=== PATIENT | male | born 1945 | race Caucasian/White ===

== ENCOUNTER 2018-03-26 13:25 | Inpatient (IN) | payer OTHER ==
[~2018-03-26] VITALS: Ht 175.3 cm; Wt 107.0 kg
[2018-03-26 14:02] LABS: BASOPHILS ABSOLUTE AUTO 0.15 K/mm3 (0.00-0.23); BASOPHILS PERCENT AUTO 1 % (0-2); EOSINOPHILS PERCENT AUTO 1 % (0-6); Hematocrit 36.9 % (37.0-53.0); Hemoglobin 11.9 g/dL (13.5-17.5); IMMATURE GRAN ABSOLUTE AUTO 0.41 K/mm3 (0.00-0.10); IMMATURE GRAN PERCENT AUTO 3 % (0-1); LYMPHOCYTES ABSOLUTE AUTO 1.09 K/mm3 (0.84-5.20); LYMPHOCYTES PERCENT AUTO 8 % (21-46); MONOCYTES ABSOLUTE AUTO 1.17 K/mm3 (0.16-1.47); MONOCYTES PERCENT AUTO 8 % (4-13); Mean Corpuscular HGB 28.6 pg (26.0-34.0); Mean Corpuscular HGB Conc 32.2 g/dL (31.5-36.5); Mean Corpuscular Volume 89 fL (80-100); Mean Platelet Volume 10.6 fL (9.1-12.4); NEUTROPHILS ABSOLUTE AUTO 11.02 K/mm3 (1.96-9.15); NEUTROPHILS PERCENT AUTO 79 % (41-73); Platelet Count 352 K/mm3 (150-400); RDW Coefficient Variation 13.9 % (11.7-14.2); RDW Standard Deviation 45.1 fL (35.1-46.3); Red Blood Cell Count 4.16 M/mm3 (4.30-5.90); White Blood Cell Count 14.04 K/mm3 (4.00-11.30)
[2018-03-26] MEDS ORDERED: AMLO5 PO (14:03)
[2018-03-26] MEDS ORDERED: FINA5 PO (14:03)
[2018-03-26] MEDS ORDERED: FURO40 PO (14:03)
[2018-03-26] MEDS ORDERED: METO25ER PO (14:04)
[2018-03-26] MEDS ORDERED: TAMS.4ER PO (14:04)
[2018-03-26] MEDS ORDERED: LISI5 PO (14:04)
[2018-03-26 14:37] LABS: Albumin, Blood 3.3 g/dL (3.4-5.0); Albumin/Globulin Ratio 0.6 (0.8-1.8); Bilirubin, Total 0.3 mg/dL (0.1-1.0); Bun/Creatinine Ratio 25.9 (12.0-20.0); Calcium, Blood 9.1 mg/dL (8.5-10.1); Creatinine, Blood 5.48 mg/dL (0.60-1.20); Globulin, Blood 5.8 g/dL (2.2-4.0); Potassium, Blood 5.3 mmol/L (3.5-5.5); Total Protein, Blood 9.1 g/dL (6.4-8.2)
[2018-03-26 15:26] LABS: Source, Urine Catheter
[2018-03-26 15:37] LABS: Bilirubin, Urine Neg (Neg); Blood, Urine 5+ (Neg); Glucose Qualitative, Urine Neg (Neg); Ketones, Urine Neg (Neg); Leukocyte Esterase, Urine 3+ (Neg); Nitrite, Urine Neg (Neg); Protein, Urine 3+ (Neg); Urobilinogen, Urine NORM (Normal)
[2018-03-26 15:47] LABS: Appearance, Urine Cloudy (Clear); Color, Urine Yellow (P-Yellow)
[2018-03-26 15:48] LABS: Bacteria Many /hpf; Red Blood Cells, Urine TNTC /hpf (0-2); Squamous Epithelial Cells Not Seen /hpf (Few); White Blood Cells, Urine TNTC /hpf (0-5)
[2018-03-26] MEDS ORDERED: Acetaminophen-1 EAC1 PO (16:18)
[2018-03-26 16:21] LABS: Magnesium, Blood 2.3 mg/dL (1.6-2.4); Phosphorus, Blood 7.5 mg/dL (2.5-4.9)
[2018-03-26 18:50] LABS: Sodium, Urine, Random 29 mmol/L (20-110); Urea Nitrogen, Urine, Random 457 mg/dL (350-1000)
--- NOTE | 2018-03-27 03:06 | NUR ---
SHIFT SUMMARY PT WAS A NEW ADMIT JUST PRIOR TO START OF NOC SHIFT. PT ADMITTED FOR ACUTE ON CRF/CKD WITH CHRONIC BELTRÁN CATH IN PLACE. PER SHIFT REPORT, PT WAS SUPPOSE WAS TO HAVE A SUPRAPUBIC CATH PLACED YESTERDAY, HOWEVER WAS UNABLE TO D/T UTI. PT SENT TO ER FOR TX OF UTI. BELTRÁN CATH CHANGED PER ADMISSION PROTOCOL. NEW BELTRÁN CATH PLACED WITH MUCH DIFFICULTY. PT REPORTED PLACEMENT VERY PAINFUL AND STILL HAVING BLADDER SPASMS. DR PEREZ CONSULTED AND SEEN PT IN ER. PT C/O NAUSEA AT START OF SHIFT, MEDICATED PER EMAR. IVF'S INFUSING PER EMAR. PT NPO PER ORDERS. HX BPH AND CHF. PT DENIED BEING DIABETIC; HOWEVER, DAUGHTER CALLED AND REPORTED THAT HE WAS AND HAD BEEN ON METFORMIN UNTIL RECENTLY. METFORMIN IS NOT CURRENTLY LISTED ON PT'S MED REC. PT HAS BEEN PLEASANT AND CO-OP. HAS HAD SOME DIFFICULTY MOVING AROUND IN BED D/T BEING MORBIDLY OBESE. CONTINOUS BIOX ON PER BILL PROTOCOL. CALL LT IN REACH.
[2018-03-27 03:26] LABS: Hematocrit 31.1 % (37.0-53.0); Hemoglobin 9.9 g/dL (13.5-17.5); Mean Corpuscular HGB 28.7 pg (26.0-34.0); Mean Corpuscular HGB Conc 31.8 g/dL (31.5-36.5); Mean Corpuscular Volume 90 fL (80-100); Mean Platelet Volume 10.5 fL (9.1-12.4); Platelet Count 280 K/mm3 (150-400); RDW Standard Deviation 45.8 fL (35.1-46.3); Red Blood Cell Count 3.45 M/mm3 (4.30-5.90); White Blood Cell Count 9.39 K/mm3 (4.00-11.30)
[2018-03-27 03:40] LABS: International Normalized Ratio 1.03; Prothrombin Time Results 10.9 Sec (9.7-11.5)
[2018-03-27 03:45] LABS: Albumin, Blood 2.7 g/dL (3.4-5.0); Albumin/Globulin Ratio 0.6 (0.8-1.8); Bilirubin, Total 0.3 mg/dL (0.1-1.0); Bun/Creatinine Ratio 28.3 (12.0-20.0); Calcium, Blood 8.2 mg/dL (8.5-10.1); Creatinine, Blood 4.7 mg/dL (0.60-1.20); Globulin, Blood 4.9 g/dL (2.2-4.0); Potassium, Blood 5.3 mmol/L (3.5-5.5); Total Protein, Blood 7.6 g/dL (6.4-8.2)
[2018-03-27 07:52] LABS: Percent Saturation 27.3 % (20.0-50.0)
--- NOTE | 2018-03-27 18:23 | NUR ---
SHIFT SUMMARY PT HAS BEEN SLEEPING A LOT OF THE SHIFT. PT HAS NOT HAD MUCH OF AN APPTITE THIS SHIFT. PT C/O SEVERE SENSITIVITY/BURNING TO URETHRA AND OPENING OF PENIS FROM CATHETER PLACEMENT YESTERDAY. THIS RN TALKED WITH DR. ESTRADA AND LIDOCAINED ORDERED. THIS RN PLACED LIDOCAINE IN OPENING OF PENIS MUCH PT COULD TOLERATE AND PT REPORTS FEELING BETTER AFTER APPLICATION. PT HAD HYPOTENSION THIS AM AND DR. ESTRADA AWARE THIS RN HELD AM MEDICATIONS. MEDICATIONS WERE CHANGED. NO FURTHER CHANGES OR COMPLAINTS THIS SHIFT. WILL CONTINUE TO MONITOR AND REPORT TO ONCOMING RN. CALL LIGHT IN REACH.
--- NOTE | 2018-03-28 04:53 | NUR ---
PLASTICS PATTERNMAKER SUMMARY NO ACUTE CHANGES THIS SHIFT. PT AAOX4 AND COOPERATIVE WITH CARE. STANDBY ASSIST TO BATHROOM. PT HAD 1 SMALL BM AND ALSO SOME GAS. PT STILL REPORTS DISCOMFORT FROM BELTRÁN CATHETER SITE. DENIES PAIN WHEN LAYING IN BED AND DENIES NEED FOR PAIN MEDS. VSS, WILL CONTINUE TO MONITOR.
[2018-03-28 04:58] LABS: BASOPHILS ABSOLUTE AUTO 0.08 K/mm3 (0.00-0.23); BASOPHILS PERCENT AUTO 1 % (0-2); EOSINOPHILS ABSOLUTE AUTO 0.36 K/mm3 (0.00-0.68); EOSINOPHILS PERCENT AUTO 5 % (0-6); Hematocrit 30.1 % (37.0-53.0); Hemoglobin 9.3 g/dL (13.5-17.5); IMMATURE GRAN ABSOLUTE AUTO 0.27 K/mm3 (0.00-0.10); IMMATURE GRAN PERCENT AUTO 4 % (0-1); LYMPHOCYTES ABSOLUTE AUTO 1.06 K/mm3 (0.84-5.20); LYMPHOCYTES PERCENT AUTO 14 % (21-46); MONOCYTES ABSOLUTE AUTO 0.75 K/mm3 (0.16-1.47); MONOCYTES PERCENT AUTO 10 % (4-13); Mean Corpuscular HGB 28.1 pg (26.0-34.0); Mean Corpuscular HGB Conc 30.9 g/dL (31.5-36.5); Mean Corpuscular Volume 91 fL (80-100); Mean Platelet Volume 10.4 fL (9.1-12.4); NEUTROPHILS ABSOLUTE AUTO 5.26 K/mm3 (1.96-9.15); NEUTROPHILS PERCENT AUTO 68 % (41-73); Platelet Count 258 K/mm3 (150-400); RDW Coefficient Variation 14.4 % (11.7-14.2); RDW Standard Deviation 48.4 fL (35.1-46.3); Red Blood Cell Count 3.31 M/mm3 (4.30-5.90); White Blood Cell Count 7.78 K/mm3 (4.00-11.30)
[2018-03-28 06:11] LABS: Magnesium, Blood 2.2 mg/dL (1.6-2.4)
[2018-03-28 06:29] LABS: Alanine Aminotransfer (ALT/SGP 22 U/L (12-78); Albumin, Blood 2.4 g/dL (3.4-5.0); Albumin/Globulin Ratio 0.5 (0.8-1.8); Alk Phos 74 U/L (50-136); Anion Gap 9 mmol/L (6-16); Aspartate Aminotrans (AST/SGOT 14 U/L (12-37); Bilirubin, Total 0.3 mg/dL (0.1-1.0); Blood Urea Nitrogen 104 mg/dL (8-24); Bun/Creatinine Ratio 29.7 (12.0-20.0); CO2, Blood 17 mmol/L (21-32); Chloride, Blood 114 mmol/L (98-108); Globulin, Blood 4.6 g/dL (2.2-4.0); Glomerular Filtration Rate 18 (60-); Glucose, Blood 136 mg/dL (70-99); Potassium, Blood 4.7 mmol/L (3.5-5.5); Sodium, Blood 140 mmol/L (136-145)
--- NOTE | 2018-03-28 18:14 | NUR ---
SHIFT SUMMARY PT HAD AN EPISODE OF EMESIS AFTER BREAKFAST. THIS RN MEDICATED FOR N/V WITH ZOFRAN PER EMAR. PT HAD 100% OF LUNCH AND IS EATING DINNER AT THIS TIME. PT HAS HAD NO COMPLAINTS OF NAUSEA SINCE THIS AM. PT CONTINUES TO COMPLAIN OF PAIN IN PENIS/URETHRA OPENING FROM CATHETER. LIDOCAINE ORDERED AND APPLIED. PT REPORTS PAIN BETTER AFTER APPLICATION. NO ACUTE CHANGES THIS SHIFT. CALL LIGHT IN REACH. WILL CONTINUE TO MONITOR AND REPORT TO ONCOMING RN.
--- NOTE | 2018-03-29 04:41 | NUR ---
FLOOR FINISHER SUMMARY NO ACUTE CHANGES THIS SHIFT. PT AAOX4 AND INDEPENDENT TO BATHROOM. HAS HAD 1 BM THIS SHIFT. BELTRÁN CATH PATENT AND DRAINING. PT USING LIDOCAINE GEL ON TIP OF PENIS TO HELP WITH DISCOMFORT. PT DENIES PAIN OTHERWISE. VSS, WILL CONTINUE TO MONITOR.
[2018-03-29 05:31] LABS: BASOPHILS ABSOLUTE AUTO 0.08 K/mm3 (0.00-0.23); BASOPHILS PERCENT AUTO 1 % (0-2); EOSINOPHILS ABSOLUTE AUTO 0.36 K/mm3 (0.00-0.68); EOSINOPHILS PERCENT AUTO 4 % (0-6); Hemoglobin 9.3 g/dL (13.5-17.5); IMMATURE GRAN ABSOLUTE AUTO 0.39 K/mm3 (0.00-0.10); IMMATURE GRAN PERCENT AUTO 5 % (0-1); LYMPHOCYTES ABSOLUTE AUTO 1.17 K/mm3 (0.84-5.20); LYMPHOCYTES PERCENT AUTO 14 % (21-46); MONOCYTES ABSOLUTE AUTO 0.83 K/mm3 (0.16-1.47); MONOCYTES PERCENT AUTO 10 % (4-13); Mean Corpuscular HGB 29.2 pg (26.0-34.0); Mean Platelet Volume 10.4 fL (9.1-12.4); NEUTROPHILS ABSOLUTE AUTO 5.45 K/mm3 (1.96-9.15); NEUTROPHILS PERCENT AUTO 66 % (41-73); Platelet Count 281 K/mm3 (150-400); RDW Coefficient Variation 14.5 % (11.7-14.2); RDW Standard Deviation 50.2 fL (35.1-46.3); Red Blood Cell Count 3.19 M/mm3 (4.30-5.90); White Blood Cell Count 8.28 K/mm3 (4.00-11.30)
[2018-03-29 05:36] LABS: Mean Corpuscular Volume 94 fL (80-100)
[2018-03-29 06:24] LABS: Albumin, Blood 2.4 g/dL (3.4-5.0); Albumin/Globulin Ratio 0.5 (0.8-1.8); Bilirubin, Total 0.2 mg/dL (0.1-1.0); Bun/Creatinine Ratio 27.6 (12.0-20.0); Calcium, Blood 8.3 mg/dL (8.5-10.1); Creatinine, Blood 2.79 mg/dL (0.60-1.20); Globulin, Blood 4.7 g/dL (2.2-4.0); Potassium, Blood 4.8 mmol/L (3.5-5.5); Total Protein, Blood 7.1 g/dL (6.4-8.2)
--- NOTE | 2018-03-29 08:00 | NUR ---
PT PLEASANT COOP A/O. DENIES PAIN AT THIS TIME. SOME NAUSEA REPORTED. MED PER EMAR. H/R REG, TAD NOTED. NO TELE. LUNGS CLEAR, RESP EASY UNLABORED. ON R.A. BT X4 LAST BM YEST. VOIDS BELTRÁN CATH,. CLOUDY YELLOW FLUID DRAINING. 1 ASST TO BATHROOM. BED IN LOW POSITION, CALL LITE IN REACH, CALLS APPROP
[2018-03-29 18:06] LABS: A/G RATIO 0.8 (0.7-1.7); ALBUMIN 2.7 g/dL (2.9-4.4); ALPHA-1-GLOBULIN 0.2 g/dL (0.0-0.4); ALPHA-2-GLOBULIN 0.8 g/dL (0.4-1.0); GAMMA GLOBULIN 1.7 g/dL (0.4-1.8); GLOBULIN, TOTAL 3.8 g/dL (2.2-3.9); IMMUNOGLOBULIN A, QN, SERUM 649 mg/dL (61-437); IMMUNOGLOBULIN G, QN, SERUM 1490 mg/dL (700-1600); IMMUNOGLOBULIN M, QN, SERUM 66 mg/dL (20-172); M-SPIKE Not Observed g/dL (Not Observed); PROTEIN, TOTAL, SERUM 6.5 g/dL (6.0-8.5)
--- NOTE | 2018-03-29 18:45 | NUR ---
PT PLEASANT TODAY. HAD SOME EMESIS TODAY AND IS CONCERNED ABOUT MORE. MEDICATED WITH ZOFRAN. TRIED AMPHOGEL THIS NATE. AND PT TRYING TO SEE IF BETTER. PT STATES MAY BE BETTER. ADVISED HIM TO CALL AND REQUEST SHORTLY BEFORE MEALS AND SEE IF IMPROVEMENT NOTED. NO OTHER CONCERNS AT THIS TIME. BED I N LOW POSITION, CALL LITE IN REACH,C ALLS APPROP
[2018-03-30 06:01] LABS: Bun/Creatinine Ratio 23.2 (12.0-20.0); Calcium, Blood 8.6 mg/dL (8.5-10.1); Creatinine, Blood 2.28 mg/dL (0.60-1.20); Potassium, Blood 4.7 mmol/L (3.5-5.5)
--- NOTE | 2018-03-30 07:29 | NUR ---
SHIFT SUMMARY PT HAD A GOOD SHIFT UNTIL 0200 WHEN HE STARTED HAVING INCREASED PENIS PAIN AND RESTLESS LEGS. PT WAS TX PER EMAR WITH LITTLE RESULT. XYLOCAINE WAS APPLIED WITH SOME RELIEF. PT WAS AGAIN TX FOR PAIN PER EMAR WITH BETTER RESULT. PT IS NOW SLEEPING IN NO DISTRESS. CALL LIGHT IN REACH AND PT BREATHING EASY.
--- NOTE | 2018-03-30 18:09 | NUR ---
NO ACUTE CHANGES NOTED THIS SHIFT. IVF DISCONTINUED TODAY, PT MEDICATED WITH IV FENTANYL FOR 9/10 PAIN TO TIP OF PENIS. REPORTS EFFECTIVE. PT ANTICIPATING SUPRAPUBIC CATH PLACEMENT IN [place] ON SUNDAY. WILL CONTINUE TO MONITOR AND REPORT TO ONCOMING RN,.
--- NOTE | 2018-03-30 18:34 | NUR ---
EMESIS PT DID NOT TOLERATE HIS DINNER, 500CC EMESIS OF CHEWED AND PARTIALLY DIGESTED FOOD.
--- NOTE | 2018-03-31 04:00 | NUR ---
SHIFT SUMMARY PT CONTINUED TO HAVE PENIS DISCOMFORT. PROVIDER WAS CALLED TO ASK FOR ADDITIONAL PAIN MED. PROVIDER ORDERED PO PAIN MED WHICH IMPROVED PT COMFORT. PTHAS A ABD AND PELVIC CT FOR AM AND IS SUPPOSED TO DRINK ORAL CONTRAST. PT REFUSED TO DRINK CONTRAST DUE TO CONCERN OF N/V. PT HAD VOMITED EARLIER IN THE DAY AND DOES NOT WANT TO VOMIT CONTRAST. PT WAS MEDICATED FOR NAUSEA PER EMAR AND STILL REFUSED TO DRINK EVENING CONTRAST. WILL MEDICATE FOR NAUSEA AND ENCOURAGE PT TO DRINK CONTRAST THIS AM. PT HAS BEEN ABLE TO SLEEP SOME THIS SHIFT. PT COMFORT HAS IMPROVED SINCE LAST NOC SHIFT. CURRENTLY PT IS SLEEPING AND BREATHING EASY. CALL LIGHT IN REACH.
[2018-03-31 05:39] LABS: Bun/Creatinine Ratio 19.2 (12.0-20.0); Calcium, Blood 8.3 mg/dL (8.5-10.1); Creatinine, Blood 2.19 mg/dL (0.60-1.20); Potassium, Blood 4.9 mmol/L (3.5-5.5)
--- NOTE | 2018-03-31 18:13 | NUR ---
PT DOING BETTER TODAY, ABLE TO KEEP HIS MEALS DOWN OF THIS TIME. NO C/O PAIN, UP FOR A SHOWER. NO ACUTE CHANGES NOTED THIS SHIFT, WILL CONTINUE TO MONITOR AND REPORT TO ONCOMING RN.
--- NOTE | 2018-04-01 04:19 | NUR ---
SHIFT SUMMARY PT WAS IN GOOD SPIRITS THIS EVENING. PT HAD A SHOWER EARLIER AND WAS FEELING GOOD. PT DID HAVE SOME DISCOMFORT LATER IN SHIFT AND WAS TX PER EMAR. PT RESPONDED WELL AND WAS ABLE TO SLEEP. PT HAD NO ACUTE ISSUES AND IS SLEEPING. CALL LIGHT IN REACH.
--- NOTE | 2018-04-01 15:14 | NUR ---
HE HAS BEEN RESTING COMFORTABLY. HIS MAIN CONPLAINT IS PENILE PAIN FROM THE URINARY CATHETER. HE KNOWS HE NEEDS IT BUT SAYS HE NEVER WANTS ONE PLACED AGAIN. IT WAS THE WORST PAIN HE HAS EVER HAD HE SAYS. VSS. APPETITE FAIR. REFUSES A STATLOCK FOR THE CATHETER. HE WOULD RATHER CONTROL IT'S PLACEMENT HIMSELF. HE LIKES TO BE LEFT ALONE MUCH WE ARE ABLE.
--- NOTE | 2018-04-01 18:36 | NUR ---
NO CHANGES. JUST MEDICATED WITH OXYCODONE FOR PENILE PAIN. HE IS LOOKING FORWARD TO A SP CATH SO THIS PAIN WILL CEASE. HE ATE WELL AT DINNER.
--- NOTE | 2018-04-01 20:14 | NUR ---
194 PT LYING IN BED, DENIES ANY DISCOMFORT AT THIS TIME. NO APPARENT SIGNS OF DISTRESS. CALL LIGHT IS IN REACH.
--- NOTE | 2018-04-02 00:39 | NUR ---
04/01/18 2200 PT LYING IN BED, EYES CLOSED, APPEARS TO BE RESTING. BREATHING IS EVEN, UNLABORED. NO APPARENT SIGNS OF DISTRESS. CALL LIGHT IS IN REACH. 04/02/18 0039 PT LYING IN BED, EYES CLOSED, APPEARS TO BE RESTING. WAKES EASILY TO VERBAL STIMULI. NO APPARENT SIGNS OF DISTRESS. CALL LIGHT IS IN REACH.
--- NOTE | 2018-04-02 06:00 | NUR ---
0200 PT LYING IN BED, EYES CLOSED, APPEARS TO BE RESTING. BREATHING IS EVEN, UNLABORED. NO APPARENT SIGNS OF DISTRESS. CALL LIGHT IS IN REACH. 0400 PT LYING IN BED, EYES CLOSED, APPEARS TO BE RESTING. WAKES EASILY TO VERBAL STIMULI. NO APPARENT SIGNS OF DISTRESS. CALL LIGHT IS IN REACH.
--- NOTE | 2018-04-02 06:01 | NUR ---
PT LYING IN BED, EYES CLOSED, APPEARS TO BE RESTING. BREATHING IS EVEN, UNLABORED. NO APPARENT SIGNS OF DISTRESS. CALL LIGHT IS IN REACH. NO OTHER CHANGES THIS SHIFT.
--- NOTE | 2018-04-02 06:02 | NUR ---
PT IS AAO X 4, ON RA. DENIED ANY DISCOMFORT FOR THIS SHIFT.
--- NOTE | 2018-04-02 12:52 | NUR ---
HE IS HOPING TO GOP HOME TODAY AND ALERTED HIS DAUGHTER HE MAY GET DC ORDERS. HE IS FAMILIAR WITH THE UROLOGIST THAT COMES TO [place] [facility] REGULARLY. HAS DENIED NEED FOR A PAIN PILL SO FAR TODAY. HE USES HIS TOPICAL LIDOCAINE TO HIS PENIS A COUPLE OF TIMES A DAY.
[2018-04-02] MEDS ORDERED: METO25 PO (14:42)
[2018-04-02] MEDS ORDERED: ATOR80 PO (14:43)
--- NOTE | 2018-04-02 15:31 | NUR ---
HAS A LITTLE BACK PAIN. HE IS DRESSED AND WAITING FOR HIS DAUGHTER TO PICK HIM UP. HE HAS HIS INSTRUCTIONS AND THE [facility] [facility] HAS HIS INFORMATION TO MAIL HIM A PACKET. HE ALSO HAS THE [facility] INFO IF HE IS INTERESTED.
--- NOTE | 2018-04-02 15:51 | NUR ---
DISCHARGED TO HOME WITH BELONGINGS AND INSTRUCTIONS. BELTRÁN IN PLACE. WILL FOLLOW UP WITH HIS UROLOGIST.
== END 2018-04-02 16:00 | disposition home or self-care (01) | DRG 682 ==
LOC: ER 13:25 → MEDS 15:46
PROVIDERS: Emergency Medicine; Hospitalist; Internal Medicine; Nurse Practitioner Acute Care; Physician Assistant; ADMIT Family Medicine
DX: N17.9 Acute kidney failure, unspecified (principal); I50.41 Acute combined systolic (congestive) and diastolic (congestive) heart failure; T83.511A Infection and inflammatory reaction due to indwelling urethral catheter, initial encounter; I13.0 Hypertensive heart and chronic kidney disease with heart failure and stage 1 through stage 4 chronic kidney disease, or unspecified chronic kidney disease; I42.6 Alcoholic cardiomyopathy; E87.1 Hypo-osmolality and hyponatremia; E87.2 Acidosis; N13.6 Pyonephrosis; E11.22 Type 2 diabetes mellitus with diabetic chronic kidney disease; B96.1 Klebsiella pneumoniae [K. pneumoniae] as the cause of diseases classified elsewhere; B95.2 Enterococcus as the cause of diseases classified elsewhere; R11.2 Nausea with vomiting, unspecified; I16.0 Hypertensive urgency; G47.33 Obstructive sleep apnea (adult) (pediatric); F17.210 Nicotine dependence, cigarettes, uncomplicated; F10.10 Alcohol abuse, uncomplicated; N40.1 Benign prostatic hyperplasia with lower urinary tract symptoms; E78.5 Hyperlipidemia, unspecified; D63.1 Anemia in chronic kidney disease; N18.3 Chronic kidney disease, stage 3 (moderate); J45.20 Mild intermittent asthma, uncomplicated; E86.9 Volume depletion, unspecified
CPT/HCPCS: 36415; 51702; 51798; 71046; 74176; 76770; 80048; 80053; 81001; 82550; 82607; 82728; 82746; 82784; 83540; 83550; 83735; 83880; 84100; 84165; 84300; 84484; 84540; 85025; 85027; 85610; 86334; 87077; 87086; 87186; 93005; 93010; 94640; 94762; 96365-59; 96375-59; 99285-25; G0103; J0696; J1644; J2405; J3010; J7030

== ENCOUNTER 2018-05-07 09:26 | Day surgery (SDC) | payer OTHER ==
[~2018-05-07] VITALS: Ht 175.3 cm; Wt 123.6 kg
[~2018-05-07 09:26] MED LIST: AMLO5 PO; ATOR80 PO; Acetaminophen-1 EAC1 PO; FINA5 PO; FURO40 PO; LISI5 PO; METO25 PO; METO25ER PO; TAMS.4ER PO
--- NOTE | 2018-05-07 14:07 | NUR ---
PATIENT ELECTED NOT TO EAT LUNCH, PROVIDED. PATIENT REMINDED TO HOLD METFORMIN FOR 2 DAYS; TO RESTART ON 05/09/18. PERTINENT (SITE-SPECIFIC) DISCHARGE INSTRUCTIONS REVIEWED WITH PATIENTS USINT PRINTED FORMS WITH (SELF) HIGHLIGHTED AREAS EMPHASIZING MOBILILTY RESTRICTIONS AND PRECAUTIONS AGAINST INFECTION AND BLEEDING. ABLE TO SIT, STAND AND AMBULATE WITHOUT ASSISTANCE. SITES REVIEWED, SHOWING NO CHANGE IN CONDITION. IV CATHETER DC'D WITH CANNULA TIP INTACT. FOLDED 2X2 GAUZE PLACED WITH COBAN WRAP. WHEELCHAIR RIDE FOR HOSPITAL EXIT TO [facility], AWAITING RIDE.
== END 2018-05-07 15:00 | disposition home or self-care (01) ==
LOC: MHTC 09:26 → SURS 09:27 → MHTC 09:30
DX: N40.1 Benign prostatic hyperplasia with lower urinary tract symptoms (principal); E11.22 Type 2 diabetes mellitus with diabetic chronic kidney disease; I50.23 Acute on chronic systolic (congestive) heart failure; I13.0 Hypertensive heart and chronic kidney disease with heart failure and stage 1 through stage 4 chronic kidney disease, or unspecified chronic kidney disease; N18.3 Chronic kidney disease, stage 3 (moderate); E78.5 Hyperlipidemia, unspecified; Z87.891 Personal history of nicotine dependence; Z88.8 Allergy status to other drugs, medicaments and biological substances; Z79.899 Other long term (current) drug therapy
CPT/HCPCS: 99152; 99153; C1769; J2250; J3010; J7030; Q9967

== ENCOUNTER 2018-05-11 22:47 | Emergency (ER) | payer OTHER ==
[~2018-05-11] VITALS: Ht 175.3 cm; Wt 116.6 kg
[2018-05-12] MEDS ORDERED: ATOR40TA PO (01:07)
[2018-05-12] MEDS ORDERED: CEPH500 (01:07)
[2018-05-12] MEDS ORDERED: LIDO5TO TOP (01:07)
== END 2018-05-12 02:18 | disposition home or self-care (01) ==
LOC: ER 22:47
DX: T83.038A Leakage of other urinary catheter, initial encounter (principal); Z79.899 Other long term (current) drug therapy; I10 Essential (primary) hypertension; E11.9 Type 2 diabetes mellitus without complications; Z87.891 Personal history of nicotine dependence
CPT/HCPCS: 12020; 51798; 99283-25; A9270-GY

== ENCOUNTER 2018-05-20 13:51 | Emergency (ER) | payer OTHER ==
[~2018-05-20] VITALS: Ht 177.8 cm; Wt 119.3 kg
[~2018-05-20 13:51] MED LIST changes: +ATOR40TA PO; +CEPH500; +LIDO5TO TOP
[2018-05-20] MEDS ORDERED: Percocet 10-321 EACH PO (14:20)
== END 2018-05-20 15:03 | disposition home or self-care (01) ==
LOC: ER 13:51
DX: T83.031A Leakage of indwelling urethral catheter, initial encounter (principal); G89.18 Other acute postprocedural pain; Z79.899 Other long term (current) drug therapy; I10 Essential (primary) hypertension; E11.9 Type 2 diabetes mellitus without complications; Z87.891 Personal history of nicotine dependence
CPT/HCPCS: 99281

== ENCOUNTER → 2018-12-11 | Outpatient (CLI) | payer OTHER ==
[~2018-12-11] MED LIST changes: +Percocet 10-321 EACH PO
[2018-12-11 17:46] LABS: Bilirubin, Urine Neg (Neg); Blood, Urine 5+ (Neg); Glucose Qualitative, Urine 4+ (Neg); Ketones, Urine Neg (Neg); Leukocyte Esterase, Urine 3+ (Neg); Nitrite, Urine Neg (Neg); Protein, Urine 3+ (Neg); Specific Gravity, Urine 1.015 (1.003-1.022); Urobilinogen, Urine NORM (Normal)
[2018-12-11 17:56] LABS: Appearance, Urine Cloudy (Clear); Color, Urine Yellow (P-Yellow)
[2018-12-11 17:59] LABS: White Blood Cells, Urine TNTC /hpf (0-5)
[2018-12-11 18:00] LABS: Squamous Epithelial Cells Not Seen /hpf (Few)
[2018-12-11 18:01] LABS: Bacteria Mod /hpf; Yeast/Fungi Urine Mod /hpf
== END ==
LOC: LAB SHORT 16:29 → LAB 16:29
PROVIDERS: Nurse Practitioner Family
DX: N39.0 Urinary tract infection, site not specified (principal)
CPT/HCPCS: 81001; 87086

== ENCOUNTER → 2019-02-14 | Outpatient (CLI) | payer OTHER | LOC: LAB SHORT 11:04 → LAB 11:04 | DX: N39.0 Urinary tract infection, site not specified (principal) | CPT/HCPCS: 87086 ==

== ENCOUNTER → 2019-10-22 | Outpatient (CLI) | payer OTHER ==
[2019-10-22 18:01] LABS: Bilirubin, Urine Neg (Neg); Blood, Urine 5+ (Neg); Glucose Qualitative, Urine Neg (Neg); Ketones, Urine Neg (Neg); Leukocyte Esterase, Urine 3+ (Neg); Nitrite, Urine Neg (Neg); Protein, Urine 4+ (Neg); Specific Gravity, Urine 1.015 (1.003-1.022); Urobilinogen, Urine NORM (Normal)
[2019-10-22 18:20] LABS: Appearance, Urine Turbid (Clear); Color, Urine Yellow (P-Yellow)
[2019-10-22 18:27] LABS: White Blood Cells, Urine TNTC /hpf (0-5)
[2019-10-22 18:28] LABS: Bacteria Many /hpf; Red Blood Cells, Urine 50-100 /hpf (0-2); Squamous Epithelial Cells Rare /hpf (Few)
[2019-10-22 18:29] LABS: Amorphous Light (0-Heavy)
== END | disposition home or self-care (01) ==
LOC: LAB SHORT 16:31 → LAB 16:31
PROVIDERS: Internal Medicine
DX: R30.9 Painful micturition, unspecified (principal)
CPT/HCPCS: 81001; 87077; 87086; 87186

== ENCOUNTER → 2020-06-23 | Outpatient (CLI) | payer OTHER ==
[2020-06-23 13:05] LABS: Bun/Creatinine Ratio 19.7 (12.0-20.0); Calcium, Blood 9.1 mg/dL (8.5-10.1); Creatinine, Blood 1.88 mg/dL (0.60-1.20); Potassium, Blood 4.5 mmol/L (3.5-5.5)
== END | disposition home or self-care (01) ==
LOC: LAB 10:48 → LAB SHORT 10:48 → LAB FUT 04-19 11:00
PROVIDERS: Surgery Surgical Critical Care
DX: C43.0 Malignant melanoma of lip (principal)
CPT/HCPCS: 36415; 80048

== ENCOUNTER 2021-01-06 13:59 | Inpatient (IN) | payer OTHER ==
[~2021-01-06] VITALS: Ht 175.3 cm; Wt 116.0 kg
[2021-01-06 14:40] LABS: BASOPHILS ABSOLUTE AUTO 0.12 K/mm3 (0.00-0.23); BASOPHILS PERCENT AUTO 1 % (0-2); EOSINOPHILS ABSOLUTE AUTO 0.15 K/mm3 (0.00-0.68); EOSINOPHILS PERCENT AUTO 1 % (0-6); Hematocrit 42.4 % (37.0-53.0); Hemoglobin 13.8 g/dL (13.5-17.5); IMMATURE GRAN ABSOLUTE AUTO 0.13 K/mm3 (0.00-0.10); IMMATURE GRAN PERCENT AUTO 1 % (0-1); LYMPHOCYTES ABSOLUTE AUTO 1.16 K/mm3 (0.84-5.20); LYMPHOCYTES PERCENT AUTO 10 % (21-46); MONOCYTES PERCENT AUTO 11 % (4-13); Mean Corpuscular HGB 27.2 pg (26.0-34.0); Mean Corpuscular HGB Conc 32.5 g/dL (31.5-36.5); Mean Corpuscular Volume 84 fL (80-100); Mean Platelet Volume 10.5 fL (9.1-12.4); NEUTROPHILS ABSOLUTE AUTO 8.68 K/mm3 (1.96-9.15); NEUTROPHILS PERCENT AUTO 75 % (41-73); Platelet Count 366 K/mm3 (150-400); RDW Coefficient Variation 13.7 % (11.7-14.2); RDW Standard Deviation 41.5 fL (35.1-46.3); Red Blood Cell Count 5.07 M/mm3 (4.30-5.90); White Blood Cell Count 11.54 K/mm3 (4.00-11.30)
[2021-01-06 15:06] LABS: Albumin, Blood 3.3 g/dL (3.4-5.0); Albumin/Globulin Ratio 0.6 (0.8-1.8); Bilirubin, Total 0.5 mg/dL (0.1-1.0); Bun/Creatinine Ratio 14.5 (12.0-20.0); Calcium, Blood 10.1 mg/dL (8.5-10.1); Creatinine, Blood 2.55 mg/dL (0.60-1.20); Globulin, Blood 5.2 g/dL (2.2-4.0); Potassium, Blood 3.9 mmol/L (3.5-5.5); Total Protein, Blood 8.5 g/dL (6.4-8.2)
[2021-01-06] MEDS ORDERED: OXYC5 PO (15:07)
[2021-01-06] MEDS ORDERED: OXYB5 PO (15:07)
[2021-01-06] MEDS ORDERED: OXYCONTIN40 MG PO (15:07)
[2021-01-06] MEDS ORDERED: ERLEADA60 MG PO (15:08)
[2021-01-06] MEDS ORDERED: CARVEDILOL3.125 MG PO (15:08)
[2021-01-06] MEDS ORDERED: Prinivil10 MG PO (15:08)
[2021-01-06] MEDS ORDERED: FINA5 (15:08)
[2021-01-06] MEDS ORDERED: FUROSEMIDE40 MG (15:09)
[2021-01-06] MEDS ORDERED: PREGABALIN150 M5 PO (15:09)
[2021-01-06] MEDS ORDERED: GLIP5 PO (15:09)
[2021-01-06 15:30] LABS: Influenza A, PCR NEGATIVE (NEGATIVE); Influenza B, PCR NEGATIVE (NEGATIVE); Resp Syncytial Virus, PCR NEGATIVE (NEGATIVE); SARS-Cov-2 (COVID-19) PCR, MMC NEGATIVE (NEGATIVE)
[2021-01-06 17:20] LABS: Source, Urine Clean Catch
[2021-01-06 17:29] LABS: Appearance, Urine Hazy (Clear); Bilirubin, Urine Neg (Neg); Blood, Urine 5+ (Neg); Color, Urine Yellow (P-Yellow); Glucose Qualitative, Urine Neg (Neg); Ketones, Urine Neg (Neg); Leukocyte Esterase, Urine 3+ (Neg); Nitrite, Urine Neg (Neg); Protein, Urine 3+ (Neg); Specific Gravity, Urine 1.015 (1.003-1.022); Urobilinogen, Urine NORM (Normal)
[2021-01-06 17:49] LABS: Bacteria Many /hpf; Squamous Epithelial Cells Few /hpf (Few); White Blood Cells, Urine 50-100 /hpf (0-5)
[2021-01-06 21:13] LABS: Adenovirus F 40/41 Not Detected (NOT DETECT); Astrovirus Not Detected (NOT DETECT); Campylobacter Sp Not Detected (NOT DETECT); Cryptosporidium Not Detected (NOT DETECT); Cyclospora Cayetanensis Not Detected (NOT DETECT); E. Coli O157 Not Detected (NOT DETECT); Entamoeba Histolytica Not Detected (NOT DETECT); Enteroaggregative E. coli-EAEC Not Detected (NOT DETECT); Enteropathogenic E. coli-EPEC Not Detected (NOT DETECT); Enterotoxigenic E. coli-ETEC Not Detected (NOT DETECT); Giardia Lamblia Not Detected (NOT DETECT); Norovirus GI/GII Not Detected (NOT DETECT); Plesiomonas Shigelloides Not Detected (NOT DETECT); Rotavirus A Not Detected (NOT DETECT); Salmonella Sp Not Detected (NOT DETECT); Sapovirus Not Detected (NOT DETECT); Shiga Toxin-prod E. coli-STEC Not Detected (NOT DETECT); Shigella/Enteroin E. coli-EIEC Not Detected (NOT DETECT); Vibrio Cholerae Not Detected (NOT DETECT); Vibrio Sp Not Detected (NOT DETECT); Yersinia Enterocolitica Not Detected (NOT DETECT)
--- NOTE | 2021-01-06 22:35 | NUR ---
TRANSFER NOTE REPORT FROM JEANINE NEAL RN. PT TO ROOM BY SAMIR AND AMBULATED TO BED. PT ORIENTED TO CALL LIGHT AND UNIT. BED IN LOWEST POSITION, CALL LIGHT IN REACH.
--- NOTE | 2021-01-07 04:22 | NUR ---
WAREHOUSE FORKLIFT OPERATOR SUMMARY ADMITTED FOR INTRACTABLE NVD. PT IS FULL CODE. PT FOUND TO BE POSITIVE FOR C DIFF. CONTINUED IV FLUID THERAPY. PT IS INDEPENDENT IN THE ROOM. PT CARES FOR OWN SUPRAPUBIC CATHETER - REPORTS SOME BURNING. PT STARTED ON ORAL ABX LAST NIGHT. HAD MULTIPLE DIARRHEA BMS IN BSC. NO PAIN. NO REPORTED EPISODES OF VOMITING. PT NPO AT THIS TIME. NO OTHER CONCERNS THIS SHIFT.
[2021-01-07 05:44] LABS: Bun/Creatinine Ratio 14.8 (12.0-20.0); Calcium, Blood 9.3 mg/dL (8.5-10.1); Creatinine, Blood 2.64 mg/dL (0.60-1.20)
--- NOTE | 2021-01-07 17:02 | NUR ---
SHIFT SUMMARY PT AAOX4, ABLE TO MAKE NEEDS KNOWN, PLEASANT AND COOPERATIVE TO CARE. PT REQUIRES SBA TO BSC. NO C/O PAIN THIS SHIFT. DENIES CP, SOB, OR N/V. PT CONTINUES TO HAVE EPISODES OF DIARRHEA. DR. PAREKH NOTIFIED OF PATIENT'S STATUS THIS SHIFT. PT's DIET ADVANCED TO CLEAR DIET ORDERED, PT TOLERATING DIET W/O ANY ISSUES. PT CONTINUES ON ABX TX ORDERED, NO ASE NOTED. BED AT LOWEST POSITION. CALL LIGHT WITHIN REACH.
[2021-01-08 05:02] LABS: BASOPHILS ABSOLUTE AUTO 0.09 K/mm3 (0.00-0.23); BASOPHILS PERCENT AUTO 1 % (0-2); EOSINOPHILS ABSOLUTE AUTO 0.31 K/mm3 (0.00-0.68); EOSINOPHILS PERCENT AUTO 4 % (0-6); Hemoglobin 12.2 g/dL (13.5-17.5); IMMATURE GRAN ABSOLUTE AUTO 0.12 K/mm3 (0.00-0.10); IMMATURE GRAN PERCENT AUTO 1 % (0-1); LYMPHOCYTES ABSOLUTE AUTO 0.83 K/mm3 (0.84-5.20); LYMPHOCYTES PERCENT AUTO 9 % (21-46); MONOCYTES ABSOLUTE AUTO 0.87 K/mm3 (0.16-1.47); MONOCYTES PERCENT AUTO 10 % (4-13); Mean Corpuscular HGB 27.2 pg (26.0-34.0); Mean Corpuscular HGB Conc 32.1 g/dL (31.5-36.5); Mean Corpuscular Volume 85 fL (80-100); Mean Platelet Volume 10.6 fL (9.1-12.4); NEUTROPHILS ABSOLUTE AUTO 6.75 K/mm3 (1.96-9.15); NEUTROPHILS PERCENT AUTO 75 % (41-73); Platelet Count 277 K/mm3 (150-400); RDW Coefficient Variation 13.7 % (11.7-14.2); RDW Standard Deviation 42.7 fL (35.1-46.3); Red Blood Cell Count 4.48 M/mm3 (4.30-5.90); White Blood Cell Count 8.97 K/mm3 (4.00-11.30)
--- NOTE | 2021-01-08 05:13 | NUR ---
RETAIL SALES ASSOCIATE SEASONAL SUMMARY ADMITTED FOR N/V/D. PT IS FULL CODE. CURRENTLY BEING TREATED FOR C DIFF. PT CONTINUES TO HAVE DIARRHEA, BUT NO EPISODES OF NAUSEA OR VOMITING. ORDER OBTAINED FOR IMODIUM AND PT MEDICATED X2. CONTINUED ORAL ROCEPHIN. NO OTHER CONCERNS THIS SHIFT.
[2021-01-08 05:57] LABS: Albumin, Blood 2.8 g/dL (3.4-5.0); Albumin/Globulin Ratio 0.7 (0.8-1.8); Bilirubin, Direct 0.2 mg/dL (0.0-0.3); Bilirubin, Indirect 0.2 mg/dL (0.1-0.7); Bilirubin, Total 0.4 mg/dL (0.1-1.0); Bun/Creatinine Ratio 14.1 (12.0-20.0); Calcium, Blood 8.9 mg/dL (8.5-10.1); Creatinine, Blood 2.41 mg/dL (0.60-1.20); Phosphorus, Blood 3.5 mg/dL (2.5-4.9); Potassium, Blood 3.7 mmol/L (3.5-5.5); Total Protein, Blood 6.8 g/dL (6.4-8.2)
--- NOTE | 2021-01-08 17:57 | NUR ---
PT IS A/OX4, PLEASANT AND COOPERATIVE, THE PT IS UP IND TO THE BSC. THE PT APPEARS TO BE BREATHING EASILY ON RA AT THIS TIME. THE PT SO FOR HAS TOLERATED AN ADVANCED ADA DIET DENIES ANY N/V AT THIS TIME. THE PT HAS A SUPRA PUBIC CVATHETER THAT HE CARE FOR HE WANT'S AND PLACES IT ON THE FLOOR ON A CLEAN TOWEL SAYS THAT IT DRAINS BETTER THAT WAY, CALL LIGHT IN REACH, WILL CONTINUE TO MONITOR AND ASSESS FOR CHANGES
--- NOTE | 2021-01-08 20:28 | NUR ---
AWAKE, WAS RETURNING FROM THE BATHROOM. VOICED ANNOYANCE WITH MULTIPLE TRIPS TO THE BATHROOM DUE TO DIARRHEA. WE DISCUSSED MEDICATOINS AND C-DIFF. CALL LIGHT IN REACH. ISOLATION PRECAUTIONS MAINTAINED
--- NOTE | 2021-01-09 02:57 | NUR ---
POSTAL MAIL CARRIER SUMMARY ALERT AND ORIENTED X4. AFFECT CHEERFUL WHEN SPOKEN TO. VOICED ANNOYANCE OF MULTIPLE TRIPS TO THE BATHROOM (C-DIFF). RECEIVING PO VANCO FOR C-DIFF. FLUIDS ENCOURAGED TO REPLACE THAT BEING LOST. ISOLATION PRECAUTIONS MAINTAINED. HAS BEEN RESTING QUIETLY INTERMITTENTLY SINCE HS. CALL LIGHT IN REACH
[2021-01-09 05:17] LABS: BASOPHILS PERCENT AUTO 1 % (0-2); EOSINOPHILS ABSOLUTE AUTO 0.33 K/mm3 (0.00-0.68); EOSINOPHILS PERCENT AUTO 4 % (0-6); Hematocrit 37.3 % (37.0-53.0); IMMATURE GRAN ABSOLUTE AUTO 0.13 K/mm3 (0.00-0.10); IMMATURE GRAN PERCENT AUTO 2 % (0-1); LYMPHOCYTES ABSOLUTE AUTO 1.05 K/mm3 (0.84-5.20); LYMPHOCYTES PERCENT AUTO 12 % (21-46); MONOCYTES ABSOLUTE AUTO 0.93 K/mm3 (0.16-1.47); MONOCYTES PERCENT AUTO 11 % (4-13); Mean Corpuscular HGB 27.2 pg (26.0-34.0); Mean Corpuscular HGB Conc 32.2 g/dL (31.5-36.5); Mean Corpuscular Volume 85 fL (80-100); Mean Platelet Volume 10.9 fL (9.1-12.4); NEUTROPHILS ABSOLUTE AUTO 6.06 K/mm3 (1.96-9.15); NEUTROPHILS PERCENT AUTO 71 % (41-73); Platelet Count 277 K/mm3 (150-400); RDW Coefficient Variation 13.7 % (11.7-14.2); RDW Standard Deviation 42.6 fL (35.1-46.3); Red Blood Cell Count 4.41 M/mm3 (4.30-5.90)
[2021-01-09 05:44] LABS: Albumin, Blood 2.6 g/dL (3.4-5.0); Albumin/Globulin Ratio 0.7 (0.8-1.8); Bilirubin, Total 0.3 mg/dL (0.1-1.0); Bun/Creatinine Ratio 15.8 (12.0-20.0); Calcium, Blood 8.7 mg/dL (8.5-10.1); Creatinine, Blood 2.22 mg/dL (0.60-1.20); Globulin, Blood 3.9 g/dL (2.2-4.0); Potassium, Blood 3.7 mmol/L (3.5-5.5); Total Protein, Blood 6.5 g/dL (6.4-8.2)
[2021-01-09 14:21] LABS: Carcinoembryonic Antigen 0.4 ng/mL (0.0-3.0)
[2021-01-09 14:28] LABS: Cancer Antigen 19-9 13.9 U/mL (2.0-37.0)
--- NOTE | 2021-01-09 16:58 | NUR ---
PT IS A/O X3, PLEASANT AND COOPERATIVE. THE PT IS UP IND IN HIS ROOM, THE PT APPEARS TO BE BREATHING EASILY ON RA. THE PT WAS MEDICATED FOR NAUSEA X1. PT HAS HAD NO REPORTED EMISIS AND WAS ABLE TO EAT LUNCH. DR. PETERSEN WAS CONSULTED AND HAS SEEN THE PT TODAY. THE PT REPORTED THAT HIS DIARRHEA HAS SLOWED DOWN AND THAT HIS STOOLS ARE MORE SOLID. CALL LIGHT IN REACH. WILL CONTINUE TO MONITOR AND ASSESS FOR CHANGES
--- NOTE | 2021-01-10 00:14 | NUR ---
PLACED PT ON NON-REBREATHER MASK AND TURNED OXYGEN UP FROM 5 TO 6. WENT FROM 85% BIOX TO 95% BIOX.
--- NOTE | 2021-01-10 04:07 | NUR ---
PHOTOVOLTAIC FABRICATION TECHNICIAN SUMMARY HAS BEEN RESTING QUIETLY SINCE HS AFTER RECEIVING "SLEEP" MED (SEE MAR). UP AD ASHLYN, CONTINUES TO HAVE BM'S, BUT STOOL REPORTED LESS LIQUID. CONTINUES TO RECEIVE PO VANCO SCHEDULED FOR C-DIFF. ISOLATION PRECAUTIONS MAINTINED. CALL LIGHT IN REACH.
[2021-01-10 04:54] LABS: BASOPHILS ABSOLUTE AUTO 0.08 K/mm3 (0.00-0.23); BASOPHILS PERCENT AUTO 1 % (0-2); EOSINOPHILS ABSOLUTE AUTO 0.38 K/mm3 (0.00-0.68); EOSINOPHILS PERCENT AUTO 4 % (0-6); Hematocrit 34.8 % (37.0-53.0); Hemoglobin 11.3 g/dL (13.5-17.5); IMMATURE GRAN ABSOLUTE AUTO 0.13 K/mm3 (0.00-0.10); IMMATURE GRAN PERCENT AUTO 2 % (0-1); LYMPHOCYTES ABSOLUTE AUTO 1.04 K/mm3 (0.84-5.20); LYMPHOCYTES PERCENT AUTO 12 % (21-46); MONOCYTES ABSOLUTE AUTO 0.94 K/mm3 (0.16-1.47); MONOCYTES PERCENT AUTO 11 % (4-13); Mean Corpuscular HGB 27.4 pg (26.0-34.0); Mean Corpuscular HGB Conc 32.5 g/dL (31.5-36.5); Mean Corpuscular Volume 84 fL (80-100); Mean Platelet Volume 10.9 fL (9.1-12.4); NEUTROPHILS ABSOLUTE AUTO 6.24 K/mm3 (1.96-9.15); NEUTROPHILS PERCENT AUTO 71 % (41-73); Platelet Count 260 K/mm3 (150-400); RDW Coefficient Variation 13.8 % (11.7-14.2); RDW Standard Deviation 42.5 fL (35.1-46.3); Red Blood Cell Count 4.13 M/mm3 (4.30-5.90); White Blood Cell Count 8.81 K/mm3 (4.00-11.30)
[2021-01-10 05:34] LABS: Albumin, Blood 2.3 g/dL (3.4-5.0); Albumin/Globulin Ratio 0.7 (0.8-1.8); Bilirubin, Total 0.2 mg/dL (0.1-1.0); Bun/Creatinine Ratio 14.4 (12.0-20.0); Calcium, Blood 8.6 mg/dL (8.5-10.1); Creatinine, Blood 2.16 mg/dL (0.60-1.20); Globulin, Blood 3.5 g/dL (2.2-4.0); Potassium, Blood 3.8 mmol/L (3.5-5.5); Total Protein, Blood 5.8 g/dL (6.4-8.2)
[2021-01-10 09:01] LABS: International Normalized Ratio 1.05
--- NOTE | 2021-01-10 18:51 | NUR ---
PATIENT IS ALERT AND ORIENTED AND COOPERATIVE WITH CARE. LIVER BIOPSY COMPLETED TODAY. SUPRAPUBIC CATHETER IS IN PLACE. INDPENDENT IN ROOM. PLAN IS TO DISCHARGE HOME TOMORROW. THE PATIENT'S DAUGHTER WILL GIVE THE PATIENT A RIDE HOME. WILL CONTINUE TO MONITOR
--- NOTE | 2021-01-11 04:47 | NUR ---
URGENT CARE NURSE PRACTITIONER SUMMARY HAS BEEN RESTING QUIETLY WITH FEW INTERRUPTOINS SINCE HS AFTER HAVING RECEIVED MED FOR SLEEP - SEE MAR FOR DETAILS. CONTACT PRECAUTIONS CONTINUE. UP AD ASHLYN WITHOUT NOTED ACUTE DISTRESS. CALL LIGHT IN REACH. PO VANCO ADMINISTERED ORDERED.
[2021-01-11 04:49] LABS: BASOPHILS ABSOLUTE AUTO 0.08 K/mm3 (0.00-0.23); BASOPHILS PERCENT AUTO 1 % (0-2); EOSINOPHILS ABSOLUTE AUTO 0.36 K/mm3 (0.00-0.68); EOSINOPHILS PERCENT AUTO 4 % (0-6); Hematocrit 34.8 % (37.0-53.0); Hemoglobin 11.1 g/dL (13.5-17.5); IMMATURE GRAN ABSOLUTE AUTO 0.19 K/mm3 (0.00-0.10); IMMATURE GRAN PERCENT AUTO 2 % (0-1); LYMPHOCYTES ABSOLUTE AUTO 1.06 K/mm3 (0.84-5.20); LYMPHOCYTES PERCENT AUTO 10 % (21-46); MONOCYTES ABSOLUTE AUTO 0.98 K/mm3 (0.16-1.47); MONOCYTES PERCENT AUTO 10 % (4-13); Mean Corpuscular HGB Conc 31.9 g/dL (31.5-36.5); Mean Corpuscular Volume 85 fL (80-100); Mean Platelet Volume 10.5 fL (9.1-12.4); NEUTROPHILS ABSOLUTE AUTO 7.59 K/mm3 (1.96-9.15); NEUTROPHILS PERCENT AUTO 74 % (41-73); Platelet Count 266 K/mm3 (150-400); RDW Coefficient Variation 13.8 % (11.7-14.2); RDW Standard Deviation 42.9 fL (35.1-46.3); Red Blood Cell Count 4.11 M/mm3 (4.30-5.90); White Blood Cell Count 10.26 K/mm3 (4.00-11.30)
[2021-01-11 05:44] LABS: Albumin, Blood 2.4 g/dL (3.4-5.0); Albumin/Globulin Ratio 0.7 (0.8-1.8); Bilirubin, Total 0.2 mg/dL (0.1-1.0); Bun/Creatinine Ratio 17.2 (12.0-20.0); Calcium, Blood 8.7 mg/dL (8.5-10.1); Creatinine, Blood 2.09 mg/dL (0.60-1.20); Globulin, Blood 3.5 g/dL (2.2-4.0); Magnesium, Blood 2.3 mg/dL (1.6-2.4); Potassium, Blood 4.3 mmol/L (3.5-5.5); Total Protein, Blood 5.9 g/dL (6.4-8.2)
[2021-01-11] MEDS ORDERED: LISI5 PO (10:57)
[2021-01-11] MEDS ORDERED: VISBIOME 112.51 EACH PO (11:07)
[2021-01-11] MEDS ORDERED: ONDA4ODT PO (11:07)
[2021-01-11] MEDS ORDERED: FIRVANQ25 MG/1 ML PO (12:58)
--- NOTE | 2021-01-11 15:42 | NUR ---
SHIFT SUMMARY PATIENT IS ALERT AND ORIENTATED X4. NO ACUTE EVENTS THIS SHIFT. VITAL SIGNS REVIEWED. PATIENT AGREED AND UNDERSTOOD THE DISCHARGE INSTRUCTIONS. PATIENT WAS DISCHARGED TO [facility] WITHOUT INCIDENT.
[2021-01-13 10:14] LABS: Performing Lab SYMBIODX; Test Name BRAF
== END 2021-01-11 17:01 | disposition home or self-care (01) | DRG 436 ==
LOC: ER 13:59 → MEDS 14:00
PROVIDERS: Family Medicine; Internal Medicine; Internal Medicine Hematology & Oncology; Physician Assistant; ADMIT Internal Medicine
PROC: 0FB13ZX Excision of Right Lobe Liver, Percutaneous Approach, Diagnostic (ICD-10-PCS; principal; 2021-01-10)
DX: C78.7 Secondary malignant neoplasm of liver and intrahepatic bile duct (principal); A04.72 Enterocolitis due to Clostridium difficile, not specified as recurrent; N17.9 Acute kidney failure, unspecified; Z68.41 Body mass index [BMI] 40.0-44.9, adult; C78.00 Secondary malignant neoplasm of unspecified lung; Z20.822 Contact with and (suspected) exposure to COVID-19; D72.829 Elevated white blood cell count, unspecified; R79.89 Other specified abnormal findings of blood chemistry; E11.22 Type 2 diabetes mellitus with diabetic chronic kidney disease; D63.1 Anemia in chronic kidney disease; I12.9 Hypertensive chronic kidney disease with stage 1 through stage 4 chronic kidney disease, or unspecified chronic kidney disease; N18.30 Chronic kidney disease, stage 3 unspecified; Z79.84 Long term (current) use of oral hypoglycemic drugs; Z28.21 Immunization not carried out because of patient refusal; Z79.899 Other long term (current) drug therapy; Z85.46 Personal history of malignant neoplasm of prostate; Z98.890 Other specified postprocedural states; Z85.820 Personal history of malignant melanoma of skin; Z88.8 Allergy status to other drugs, medicaments and biological substances
CPT/HCPCS: 0097U; 0241U; 36415; 47000; 71250; 74150; 74176; 76705; 76770; 77012; 80048; 80053; 81001; 82248; 82378; 82947; 83690; 83735; 84100; 84153; 85025; 85610; 85730; 86301; 87086; 87324; 88307; 88341; 88342; 96365; 96372; 96375; 97116; 97161; 99285-25; A9270; G0378; J0696; J1650; J2405; J7030

== ENCOUNTER 2021-02-02 16:48 | Emergency (ER) | payer OTHER ==
[~2021-02-02] VITALS: Ht 175.3 cm; Wt 115.7 kg
[~2021-02-02 16:48] MED LIST changes: +CARVEDILOL3.125 MG PO; +ERLEADA60 MG PO; +FINA5; +FIRVANQ25 MG/1 ML PO; +FUROSEMIDE40 MG; +GLIP5 PO; +ONDA4ODT PO; +OXYB5 PO; +OXYC5 PO; +OXYCONTIN40 MG PO; +PREGABALIN150 M5 PO; +Prinivil10 MG PO; +VISBIOME 112.51 EACH PO
[2021-02-02 17:18] LABS: BASOPHILS ABSOLUTE AUTO 0.14 K/mm3 (0.00-0.23); BASOPHILS PERCENT AUTO 1 % (0-2); EOSINOPHILS ABSOLUTE AUTO 0.18 K/mm3 (0.00-0.68); EOSINOPHILS PERCENT AUTO 1 % (0-6); Hematocrit 40.2 % (37.0-53.0); Hemoglobin 12.5 g/dL (13.5-17.5); IMMATURE GRAN ABSOLUTE AUTO 0.49 K/mm3 (0.00-0.10); IMMATURE GRAN PERCENT AUTO 4 % (0-1); LYMPHOCYTES ABSOLUTE AUTO 0.96 K/mm3 (0.84-5.20); LYMPHOCYTES PERCENT AUTO 8 % (21-46); MONOCYTES ABSOLUTE AUTO 1.12 K/mm3 (0.16-1.47); MONOCYTES PERCENT AUTO 9 % (4-13); Mean Corpuscular HGB Conc 31.1 g/dL (31.5-36.5); Mean Corpuscular Volume 84 fL (80-100); Mean Platelet Volume 10.1 fL (9.1-12.4); NEUTROPHILS ABSOLUTE AUTO 9.55 K/mm3 (1.96-9.15); NEUTROPHILS PERCENT AUTO 77 % (41-73); Platelet Count 441 K/mm3 (150-400); RDW Coefficient Variation 14.6 % (11.7-14.2); RDW Standard Deviation 44.5 fL (35.1-46.3); Red Blood Cell Count 4.81 M/mm3 (4.30-5.90); White Blood Cell Count 12.44 K/mm3 (4.00-11.30)
[2021-02-02 17:40] LABS: Alanine Aminotransfer (ALT/SGP 23 U/L (12-78); Albumin, Blood 2.4 g/dL (3.4-5.0); Albumin/Globulin Ratio 0.6 (0.8-1.8); Alk Phos 132 U/L (50-136); Anion Gap 10 mmol/L (6-16); Aspartate Aminotrans (AST/SGOT 32 U/L (12-37); Bilirubin, Total 0.6 mg/dL (0.1-1.0); Blood Urea Nitrogen 39 mg/dL (8-24); Bun/Creatinine Ratio 17.8 (12.0-20.0); CO2, Blood 21 mmol/L (21-32); Calcium, Blood 9.5 mg/dL (8.5-10.1); Chloride, Blood 107 mmol/L (98-108); Creatinine, Blood 2.19 mg/dL (0.60-1.20); Globulin, Blood 4.3 g/dL (2.2-4.0); Glomerular Filtration Rate 30 (60-); Glucose, Blood 135 mg/dL (70-99); Potassium, Blood 4.4 mmol/L (3.5-5.5); Sodium, Blood 138 mmol/L (136-145); Total Protein, Blood 6.7 g/dL (6.4-8.2); Troponin I <0.015 ng/mL (0.000-0.040)
[2021-02-02 18:50] LABS: Source, Urine Catheter
[2021-02-02 18:54] LABS: Appearance, Urine Turbid (Clear); Bilirubin, Urine Neg (Neg); Blood, Urine 5+ (Neg); Color, Urine Yellow (P-Yellow); Glucose Qualitative, Urine Neg (Neg); Ketones, Urine 1+ (Neg); Leukocyte Esterase, Urine 3+ (Neg); Nitrite, Urine Neg (Neg); Protein, Urine 3+ (Neg); Urobilinogen, Urine NORM (Normal)
[2021-02-02 19:10] LABS: Red Blood Cells, Urine TNTC /hpf (0-2); White Blood Cells, Urine TNTC /hpf (0-5)
[2021-02-02 19:12] LABS: Bacteria Many /hpf; Squamous Epithelial Cells Not Seen /hpf (Few); Uric Acid Crystals Rare /hpf
[2021-02-02] MEDS ORDERED: LEVFLO500 PO (20:42)
== END 2021-02-02 21:25 | disposition home or self-care (01) ==
LOC: ER 16:48
PROVIDERS: Physician Assistant
DX: N39.0 Urinary tract infection, site not specified (principal); Z88.8 Allergy status to other drugs, medicaments and biological substances; Z79.899 Other long term (current) drug therapy; I10 Essential (primary) hypertension; E11.9 Type 2 diabetes mellitus without complications
CPT/HCPCS: 51705; 80053; 81001; 83690; 83880; 84484; 85025; 87086; 93005; 93010; 96374-59; 99284-25; C2627; J0696

== ENCOUNTER 2021-02-11 17:41 | Inpatient (IN) | payer OTHER ==
[~2021-02-11] VITALS: Ht 175.3 cm; Wt 108.4 kg
[~2021-02-11 17:41] MED LIST changes: +LEVFLO500 PO
[2021-02-11 18:24] LABS: Hematocrit 38.5 % (37.0-53.0); Hemoglobin 12.3 g/dL (13.5-17.5); Mean Corpuscular HGB 25.6 pg (26.0-34.0); Mean Corpuscular HGB Conc 31.9 g/dL (31.5-36.5); Mean Corpuscular Volume 80 fL (80-100); Platelet Count 327 K/mm3 (150-400); RDW Coefficient Variation 15.9 % (11.7-14.2); RDW Standard Deviation 45.9 fL (35.1-46.3); White Blood Cell Count 16.59 K/mm3 (4.00-11.30)
[2021-02-11 18:26] LABS: PCO2 Arterial 25.7 mmHg (35-45); PO2 Arterial 159 mmHg (80-100); pH Blood Arterial 7.38 (7.35-7.45)
[2021-02-11 18:40] LABS: Creatine Kinase MB 6.9 ng/mL (0.0-3.6); Creatine Kinase MB Index 3.2 (0.0-4.0); Troponin I 0.02 ng/mL (0.000-0.040)
[2021-02-11 18:43] LABS: Albumin, Blood 2.4 g/dL (3.4-5.0); Albumin/Globulin Ratio 0.6 (0.8-1.8); BAND PERCENT MAN 6 % (0-8); BASOPHILS PERCENT MAN 0 % (0-2); Bilirubin, Total 0.5 mg/dL (0.1-1.0); Bun/Creatinine Ratio 17.8 (12.0-20.0); Calcium, Blood 8.6 mg/dL (8.5-10.1); Creatinine, Blood 7.13 mg/dL (0.60-1.20); EOSINOPHILS PERCENT MAN 0 % (0-6); LYMPHOCYTES ABSOLUTE MAN 0.49 K/mm3 (0.84-5.20); LYMPHOCYTES PERCENT MAN 3 % (21-46); METAMYELOCYTE ABSOLUTE MAN 0.33 K/mm3 (0.00-0.00); METAMYELOCYTE PERCENT MAN 2 % (0-0); MONOCYTES ABSOLUTE MAN 1.16 K/mm3 (0.16-1.47); MONOCYTES PERCENT MAN 7 % (4-13); NEUTROPHILS ABSOLUTE MAN 14.59 K/mm3 (1.96-9.15); Potassium, Blood 4.8 mmol/L (3.5-5.5); SEG NEUTROPHILS PERCENT MAN 82 % (41-73); TOTAL CELLS COUNTED 100; Thyroid Stimulating Hormone 3.16 uIU/mL (0.360-4.800); Total Protein, Blood 6.4 g/dL (6.4-8.2)
[2021-02-11 19:02] LABS: International Normalized Ratio 1.54; Prothrombin Time Results 15.7 Sec (9.7-11.5)
[2021-02-11 19:28] LABS: Influenza A, PCR NEGATIVE (NEGATIVE); Influenza B, PCR NEGATIVE (NEGATIVE); Resp Syncytial Virus, PCR NEGATIVE (NEGATIVE); SARS-Cov-2 (COVID-19) PCR, MMC NEGATIVE (NEGATIVE)
[2021-02-11 21:46] LABS: Source, Urine Catheter
[2021-02-11 21:51] LABS: Appearance, Urine Hazy (Clear); Bilirubin, Urine Neg (Neg); Blood, Urine 5+ (Neg); Color, Urine Yellow (P-Yellow); Glucose Qualitative, Urine Neg (Neg); Ketones, Urine Neg (Neg); Leukocyte Esterase, Urine 3+ (Neg); Nitrite, Urine Neg (Neg); Protein, Urine 2+ (Neg); Specific Gravity, Urine 1.015 (1.003-1.022); Urobilinogen, Urine NORM (Normal)
[2021-02-11 22:05] LABS: Red Blood Cells, Urine 0-2 /hpf (0-2); Squamous Epithelial Cells Rare /hpf (Few); White Blood Cells, Urine 25-50 /hpf (0-5)
[2021-02-11 22:06] LABS: Bacteria Few /hpf; Yeast/Fungi Urine Mod /hpf
--- NOTE | 2021-02-12 | NUR ---
ADMISSION REPORT RECIEVED FROM ER NURSE. PATIENT ARRIVED TO PCU 17 ON ER GURNEY, SLID OVER TO PCU BED BY STAFF. VSS. PATIENT ON ROOM AIR. PHOTOS TAKEN OF PATIENT'S PREEXISTING WOUNDS/SKIN. PHOTOS IN CHART. PATIENT ORIENTED TO ROOM AND CALL LIGHT SYSTEM. TELE IN PLACE. BED IN LOW POSITION.
[2021-02-12 03:36] LABS: BASOPHILS ABSOLUTE AUTO 0.08 K/mm3 (0.00-0.23); BASOPHILS PERCENT AUTO 1 % (0-2); EOSINOPHILS ABSOLUTE AUTO 0.01 K/mm3 (0.00-0.68); EOSINOPHILS PERCENT AUTO 0 % (0-6); Hematocrit 33.7 % (37.0-53.0); Hemoglobin 10.7 g/dL (13.5-17.5); IMMATURE GRAN PERCENT AUTO 5 % (0-1); LYMPHOCYTES ABSOLUTE AUTO 0.62 K/mm3 (0.84-5.20); LYMPHOCYTES PERCENT AUTO 4 % (21-46); MONOCYTES ABSOLUTE AUTO 1.27 K/mm3 (0.16-1.47); MONOCYTES PERCENT AUTO 9 % (4-13); Mean Corpuscular HGB 25.7 pg (26.0-34.0); Mean Corpuscular HGB Conc 31.8 g/dL (31.5-36.5); Mean Corpuscular Volume 81 fL (80-100); Mean Platelet Volume 10.2 fL (9.1-12.4); NEUTROPHILS ABSOLUTE AUTO 12.26 K/mm3 (1.96-9.15); NEUTROPHILS PERCENT AUTO 82 % (41-73); Platelet Count 286 K/mm3 (150-400); RDW Standard Deviation 46.9 fL (35.1-46.3); Red Blood Cell Count 4.16 M/mm3 (4.30-5.90); White Blood Cell Count 14.94 K/mm3 (4.00-11.30)
[2021-02-12 03:51] LABS: Albumin, Blood 1.8 g/dL (3.4-5.0); Anion Gap 14 mmol/L (6-16); Blood Urea Nitrogen 128 mg/dL (8-24); Bun/Creatinine Ratio 19.5 (12.0-20.0); CO2, Blood 19 mmol/L (21-32); Calcium, Blood 8.4 mg/dL (8.5-10.1); Chloride, Blood 107 mmol/L (98-108); Creatinine, Blood 6.58 mg/dL (0.60-1.20); Glomerular Filtration Rate 8 (60-); Glucose, Blood 174 mg/dL (70-99); Magnesium, Blood 2.4 mg/dL (1.6-2.4); Phosphorus, Blood 5.9 mg/dL (2.5-4.9); Potassium, Blood 4.3 mmol/L (3.5-5.5); Sodium, Blood 140 mmol/L (136-145)
[2021-02-12 04:38] LABS: Campylobacter Sp Not Detected (NOT DETECT)
[2021-02-12 04:39] LABS: Adenovirus F 40/41 Not Detected (NOT DETECT); Astrovirus Not Detected (NOT DETECT); Cryptosporidium Not Detected (NOT DETECT); Cyclospora Cayetanensis Not Detected (NOT DETECT); E. Coli O157 Not Detected (NOT DETECT); Entamoeba Histolytica Not Detected (NOT DETECT); Enteroaggregative E. coli-EAEC Not Detected (NOT DETECT); Enteropathogenic E. coli-EPEC Not Detected (NOT DETECT); Enterotoxigenic E. coli-ETEC Not Detected (NOT DETECT); Giardia Lamblia Not Detected (NOT DETECT); Norovirus GI/GII Not Detected (NOT DETECT); Plesiomonas Shigelloides Not Detected (NOT DETECT); Rotavirus A Not Detected (NOT DETECT); Salmonella Sp Not Detected (NOT DETECT); Sapovirus Not Detected (NOT DETECT); Shiga Toxin-prod E. coli-STEC Not Detected (NOT DETECT); Shigella/Enteroin E. coli-EIEC Not Detected (NOT DETECT); Vibrio Cholerae Not Detected (NOT DETECT); Vibrio Sp Not Detected (NOT DETECT); Yersinia Enterocolitica Not Detected (NOT DETECT)
--- NOTE | 2021-02-12 05:38 | NUR ---
SHIFT SUMMARY PATIENT ALERT AND ORIENTED X3. VSS AND PATIENT REMAINS ON RA WITH O2 SATURATION ABOVE 92%. PATIENT ABLE TO MAKE NEEDS KNOWN AND USES CALL LIGHT APPROPRIATELY. ABLE TO HAVE BM OVERNIGHT, SAMPLE SENT TO LAB. NO OTHER SIGNIFICANT CHANGES SINCE ADMISSION NOTE. WILL REPORT TO DAY SHIFT RN.
--- NOTE | 2021-02-12 17:18 | NUR ---
PT WITH FLAT AFFECT, HE IS CONUSED, HE INTERMITTENTLY IS AWARE WHERE HE IS AND IS ORIENTED TO SELF. PT WITH CHRONIC BACK PAIN, HE WILL BECOME TEARFUL BECAUSE OF PAIN BUT REPORTS PAIN A "2". PT WAS TREATED WITH SCHEDULED ROXICODONE AND PRN FOR BREAKTHROUGH PAIN. PT HAS BEEN TO CT AND HAS HAD ECHO PERFORMED. AWAITING RESULTS OF ECHO NOW. VSS. DENIES CP OR SOB.
[2021-02-13 03:48] LABS: Hematocrit 31.6 % (37.0-53.0); Hemoglobin 10.1 g/dL (13.5-17.5)
[2021-02-13 04:08] LABS: Albumin, Blood 1.6 g/dL (3.4-5.0); Anion Gap 12 mmol/L (6-16); Blood Urea Nitrogen 109 mg/dL (8-24); CO2, Blood 20 mmol/L (21-32); Calcium, Blood 8.1 mg/dL (8.5-10.1); Chloride, Blood 110 mmol/L (98-108); Creatinine, Blood 5.18 mg/dL (0.60-1.20); Glomerular Filtration Rate 11 (60-); Glucose, Blood 145 mg/dL (70-99); Magnesium, Blood 2.3 mg/dL (1.6-2.4); Potassium, Blood 3.4 mmol/L (3.5-5.5); Sodium, Blood 142 mmol/L (136-145)
--- NOTE | 2021-02-13 05:13 | NUR ---
SHIFT SUMMARY PATIENT ALERT AND ORIENTED BUT CONFUSED AT TIMES. ANSWERS ALL QUESTIONS APPROPRIATELY. VSS. PATIENT REMAINS ON RA WITH O2 SATURATION ABOVE 92%. PATIENT SLEPT FOR MOST OF SHIFT BUT WAKES EASILY TO VERBAL STIMULLI. NO OTHER SIGNIFICANT CHANGES NOTES, WILL REPORT TO DAY SHIFT.
--- NOTE | 2021-02-13 17:13 | NUR ---
SHIFT SUMMARY PT HAS BEEN RESTING QUIETLY IN ROOM. PT SPENT SOME TIME IN THE BEDSIDE CHAIR AND CALLED FOR ASSISTANCE TO AND FROM CHAIR. PT TRANSFERRED BY STANDBY ASSIST WITH GAIT BELT AND WALKER. PT C/O LOWER BACK PAIN THAT WAS RELIEVED WITH HEAT AND REPOSITIONING. VSS, NO CHANGES TO CURRENT CONDITION.
[2021-02-14 05:11] LABS: BASOPHILS ABSOLUTE AUTO 0.07 K/mm3 (0.00-0.23); BASOPHILS PERCENT AUTO 1 % (0-2); EOSINOPHILS ABSOLUTE AUTO 0.08 K/mm3 (0.00-0.68); EOSINOPHILS PERCENT AUTO 1 % (0-6); Hematocrit 32.2 % (37.0-53.0); Hemoglobin 10.1 g/dL (13.5-17.5); IMMATURE GRAN ABSOLUTE AUTO 0.49 K/mm3 (0.00-0.10); IMMATURE GRAN PERCENT AUTO 5 % (0-1); LYMPHOCYTES PERCENT AUTO 6 % (21-46); MONOCYTES ABSOLUTE AUTO 0.91 K/mm3 (0.16-1.47); MONOCYTES PERCENT AUTO 10 % (4-13); Mean Corpuscular HGB 25.5 pg (26.0-34.0); Mean Corpuscular HGB Conc 31.4 g/dL (31.5-36.5); Mean Corpuscular Volume 81 fL (80-100); Mean Platelet Volume 10.7 fL (9.1-12.4); NEUTROPHILS ABSOLUTE AUTO 7.16 K/mm3 (1.96-9.15); NEUTROPHILS PERCENT AUTO 77 % (41-73); Platelet Count 211 K/mm3 (150-400); RDW Coefficient Variation 16.4 % (11.7-14.2); RDW Standard Deviation 48.1 fL (35.1-46.3); Red Blood Cell Count 3.96 M/mm3 (4.30-5.90); White Blood Cell Count 9.31 K/mm3 (4.00-11.30)
[2021-02-14 05:31] LABS: Albumin, Blood 1.6 g/dL (3.4-5.0); Anion Gap 9 mmol/L (6-16); Blood Urea Nitrogen 103 mg/dL (8-24); Bun/Creatinine Ratio 22.6 (12.0-20.0); CO2, Blood 20 mmol/L (21-32); Calcium, Blood 8.2 mg/dL (8.5-10.1); Chloride, Blood 113 mmol/L (98-108); Creatinine, Blood 4.55 mg/dL (0.60-1.20); Glomerular Filtration Rate 13 (60-); Glucose, Blood 169 mg/dL (70-99); Magnesium, Blood 2.2 mg/dL (1.6-2.4); Phosphorus, Blood 3.9 mg/dL (2.5-4.9); Potassium, Blood 3.7 mmol/L (3.5-5.5); Sodium, Blood 142 mmol/L (136-145)
--- NOTE | 2021-02-14 07:47 | NUR ---
SHIFT SUMMARY PT AOX4, COOPERATIVE AND PLEASANT. C/O PAIN IN LOW BACK AND IN SKIN FOLDS. PT CLEANED AND SUPRAPUBIC AREA CLEANED. BABY POWDER APPLIED TO FOLDS TO HELP WITH SHEAR AND FRICTION. PT REPOSITONED T/O SHIFT FOR COMFORT AND TO REDUCE PRESSURE. NS INFUSED AT 75 MLS/HR. ON RA, SATS 97-100%. UP TO HAVE EPISODE OF DIARRHEA WITH SEBASTIAN RN TO BEDSIDE COMMODE WITH WALKER. PER SEBASTIAN RN, PT WAS VERY WEAK. PT HAD EPISODE OF EMESIS FOLLOWING SITTING UP IN BED. THIS RN GAVE ZOFRAN MM, NO FURTHER EMESIS. PT STATES HX OF NAUSEA & VOMTIING AT HOME. SINUS 80'S T/O SHIFT.
--- NOTE | 2021-02-14 09:15 | NUR ---
CARE ASSUMPTION PATIENT IS A/OX4. VSS. SUPRAPUBIC CATH IN PLACE DRAINING WITH GRAVITY. THERE IS REDNESS IN THE FREYA AREA AND IN THE SKIN FOLDS. THIS RN CLEANED THE SKIN FOLDS AND APPLIED BABY POWDER. PATIENT REPORTS MINOR BACK PAIN THIS MORNING AND RECEIVED PAIN MED PER EMAR FOR MORNING AM DOSE. CALL LIGHT WITHIN REACH AND BED IN LOWEST POSITION. WILL CONTINUE TO MONTIOR AND PROVIDE CARE.
--- NOTE | 2021-02-14 17:12 | NUR ---
SHIFT SUMMARY NO ACUTE CHANGES THIS SHIFT. SUPRAPUBIC CATH DRAINING WITH GRAVITY. BABY POWDER APPLIED TO SKIN FOLDS, DUE TO REDNESS. PATIENT HAS FROZEN POPSICLES IN THE FREEZER. CALL LIGHT WITHIN REACH AND BED IN LOWEST POSITION. WILL CONTINUE TO MONITOR AND PROVIDE CARE UNTIL HAND OFF WITH NEXT SHIFT.
[2021-02-15 05:38] LABS: Albumin, Blood 1.5 g/dL (3.4-5.0); Anion Gap 7 mmol/L (6-16); Blood Urea Nitrogen 97 mg/dL (8-24); Bun/Creatinine Ratio 23.6 (12.0-20.0); CO2, Blood 23 mmol/L (21-32); Calcium, Blood 8.1 mg/dL (8.5-10.1); Chloride, Blood 115 mmol/L (98-108); Creatinine, Blood 4.11 mg/dL (0.60-1.20); Glomerular Filtration Rate 14 (60-); Glucose, Blood 164 mg/dL (70-99); Magnesium, Blood 2.1 mg/dL (1.6-2.4); Phosphorus, Blood 3.7 mg/dL (2.5-4.9); Potassium, Blood 3.6 mmol/L (3.5-5.5); Sodium, Blood 145 mmol/L (136-145)
--- NOTE | 2021-02-15 05:52 | NUR ---
SHIFT SUMMARY NO ACUTE CHANGES THIS SHIFT. VSS. PT AXO. IN SR. ON RA. SUPRAPUBIC CATHETER INTACT. CLEANED THIS SHIFT. COCCYX MEPILEX IN PLACE. NA BICARB INFUSING PER EMAR. POWERGLIDE INTACT. OTHERWISE, PT HAS NOT USED CALL LIGHT OFTEN THIS SHIFT. HAS STATED NEEDS WHEN NEEDED. OTHERWISE, BED ALARM IN PLACE.
--- NOTE | 2021-02-15 17:50 | NUR ---
Pt is A&O, pleasant with cares. VSS on RA. Na bicarb was d/c today. Pt has rash in pannus, looks like it may be fungal. Contacted MD and nystatin powder was added. I also found an open sore on buttocks, pt reported he has had it for awhile and it has been causing him some discomfort at home prior to arrival. Cream applied and will make sure to use pillows to float pt off hips. Pt has chronic pain, schedule oxycotin and prn meds given per APR.
[2021-02-16 05:51] LABS: Albumin, Blood 1.5 g/dL (3.4-5.0); Anion Gap 9 mmol/L (6-16); Blood Urea Nitrogen 97 mg/dL (8-24); Bun/Creatinine Ratio 21.6 (12.0-20.0); CO2, Blood 23 mmol/L (21-32); Calcium, Blood 8.2 mg/dL (8.5-10.1); Chloride, Blood 109 mmol/L (98-108); Creatinine, Blood 4.49 mg/dL (0.60-1.20); Glomerular Filtration Rate 13 (60-); Glucose, Blood 146 mg/dL (70-99); Magnesium, Blood 2.1 mg/dL (1.6-2.4); Phosphorus, Blood 3.8 mg/dL (2.5-4.9); Potassium, Blood 3.7 mmol/L (3.5-5.5); Sodium, Blood 141 mmol/L (136-145)
--- NOTE | 2021-02-16 06:11 | NUR ---
SHIFT SUMMARY NO ACUTE CHANGES THIS SHIFT. PT A&OX4. SP02>92% ON RA. TELEMETRY READS NSR W/ PVCS, HR 70'S. PT DENIES PAIN. SUPRAPUBIC CATHETER DRAINING TO GRAVITY, REDDENED AREA, POWERED APPLIED. DR MARLEY IN ROOM THIS AM. MD MARLEY WITH ORDERS FOR IV LASIKS X1. PT AWAKE DURING NIGHT. ASKED PT WHY, PT STATES "IM THINKING." ASKED WHAT HE WAS THINKING ABOUT. PT STATES "WHAT HAPPENS WHEN I GO HOME. i HAVE TO DO BETTER." THIS RN AND PT SPENT TIME TALKING ABOUT LOOKING FOR THINGS LIKE LOOSE RUGS TO PREVENT FALLS, NUTRITION HELP, ETC. PT EXPRESSES WISH FOR HOME HEALTH NURSE. CALL LIGHT IN REACH.
--- NOTE | 2021-02-16 15:05 | NUR ---
Spoke with Dr Boggs this AM and discussed case. Pt has metastatic cancer with Pt and family may benefit from discussion regarding hospice. Pt resting in bed upon arrival. Pt's daughter at bedside. Engaged in therapeutic discussion regarding goals of care. Pt and daughter report understanding of condition including cancer. Discussed hospice as an option and educated on hospice philosophy with V/U made by Pt and family. Pt and family agreeable to hospice services. Discussed hospice agencies to choose from with Pt and family choosing [facility]. Offered therapeutic listening and answered questions. Discussed current code status. Educated on life sustaining measures including risk factors and implications of CPR. Pt chooses DNR status. Pt and family express appreciation and report no other concerns at this time. Spoke with Job Press Operator Kenyetta and discussed case. Spoke with Dr Boggs and discussed case. Changed Pt's code status to DNR per V/O from Dr Boggs. Palliative Care will remain available.
--- NOTE | 2021-02-16 16:08 | NUR ---
Assumed care from [id number]. Report given to Josephine LEMONS and pt was transitioned to med no tele. VSS on RA, HTN increased and scheduled meds given. Pt had meeting with palliative care and oncology today with family present. The pt and family want to move towards comfort care. Code status changed to DNR. Pt has a suprapubic cath, not much urine output this shift. Pt needs 24hr urine collected. Started today, but not much urine output much. CBGs low 100s, no sliding scale needed today. Pain reported in back, scheduled oxycotin given with good effect. Powerglide working well in right upper arm.
--- NOTE | 2021-02-16 16:21 | NUR ---
PT REQUESTED POPSICLE.
--- NOTE | 2021-02-16 17:04 | NUR ---
Received referral from nurse manager care (Kenyetta Truong) on 02/16/2021. Patient is to discharge with orders for hospice and family elected [facility]. Gathered supporting documentation for referral (face sheet, labs, imaging, progress notes, palliative care note, and H&P) and sent to [facility] reiki practitioner (Thai Thompson) for review of hospice appropriateness and ability to accept patient onto service post discharge. Will await further information from hospice reiki practitioner regarding the above. Malika Laguerre Referral Liaison
--- NOTE | 2021-02-17 04:43 | NUR ---
TIER LIFT OPERATOR SUMMARY NO ACUTE CHANGES THIS SHIFT. PT AAOX4 AND PLEASANT. ABLE TO GET TO BATHROOM WITH 1 ASSIST. HAD BM. WOUND ON BUTTOCK OPEN WITH SOME RED DRAINAGE, AREA CLEANSED. CATHETER DRAINING SMALL AMOUNTS OF YELLOW URINE. VSS, WILL CONTINUE TO MONITOR.
--- NOTE | 2021-02-17 08:16 | NUR ---
c/o pain on wounds in gluteal fold. Donut pillow from home repositioned to provide better relief. Nystatin powdered fabric pillowcase also positioned under pannus to relieve discomfort of excoriated areas.
--- NOTE | 2021-02-17 15:09 | NUR ---
Met with patient's daughter (Hannha Dye) to further discuss hospice services and the election of [facility]. Patient's daughter is agreeable to the above. Discussed what hospice is (reserved for patients with a terminal diagnosis with life expectancy of 6 months or less). Discussed that some patients exceed the 6 months expectancy and stay on service and some patients stabilize and come off hospice. Patient's daughter verbalized understanding of the above. Discussed with patient's daughter that hospice service focuses on quality of life at the end of life and that rather than measuring the quantity of days, the quality of those days would be measured. Discussed with patient's daughter that with hospice service the goal would be to keep the patient out of the hospital and comfortable by managing symptoms at home. Patient's daughter verbalized understanding. Discussed the people, prescriptions, and equipment of hospice. People- discussed the team of people and their roles (RNs, chaplains, therapists, LCSWs, CNAs, and volunteers) that would be there to support not only the patient but also their family during this time. Explained to the patient's daughter that the team would be custom tailored to the patient and family's needs during this time. Patient's daughter verbalized understanding. Prescriptions- discussed that we utilize a mail order pharmacy ([facility]) to provide medications related to the hospice diagnosis and for symptom management. All other medications that patient chose to stay on would be patient's and/or patient's family's responsibility to provide and pay for. Patient's daughter verbalized understanding. Discussed that upon discharge patient would be given three prescriptions, one for morphine 20mg/mL #30mL (0.25mL - 1mL PO/SL Q1H PRN SOB/pain), one for lorazepam 0.5mg #20 (1 - 2 PO Q4H PRN anxiety), and one for hyoscyamine 0.125mg SL tablets #30 (1 SL Q2H PRN secretions). Additionally, patient's daughter was also given two prescriptions for pain medications patient had been on prior to hospitalization- oxycodone ER 40mg #6 (1 PO BID) and oxycodone IR 5mg #12 (1 PO Q6H PRN breakthrough pain). Explained to the patient's daughter that as patient would not yet be admitted to hospice service at the time of discharge those prescriptions would be patient/patient's family's responsibility to fill and pay for. Patient's daughter verbalized understanding. Equipment- discussed with patient's daughter that we contract through [employer] to provide DME such as hospital beds, commodes, etc. to patient. Wrote order for DME (hospital bed, full rails, pump & pad, over bed table, oxygen at 1-5 LPM, shower chair, transfer bench, bedside commode, walker, and wheelchair) and sent to [employer] for delivery on Sunday- 02/18/2021. Discussed with patient's daughter that [employer] does not supply the sheets for the beds. Discussed that one of two options can be used- either a twin extra-long fitted sheet OR a more sized flat sheet wrapped around the pump & pad. Patient's daughter verbalized understanding. Discussed with patient's daughter that once patient was admitted onto hospice services the goal would be for them to contact us ([facility]) over contacting 911 or presenting back to the hospital/ED. Patient's daughter verbalized understanding. Discussed the tentative discharge plans for Sunday- 02/18/2021 at 1030 with preferred mode of transportation- medical transport via gurney. Explained to patient's daughter that I would arrange transportation for patient. Patient's daughter verbalized understanding. Offered a chance for patient's daughter to ask questions regarding the above of which there were none. Will continue to monitor and follow as appropriate for discharge. Malika Laguerre Referral Liaison
--- NOTE | 2021-02-17 15:09 | NUR ---
Late Entry from 02/17/2021 at 0915: Received notification from [facility] regional forester (Thai Thompson) that patient is hospice appropriate and able to be accepted onto service post discharge. Will attempt to meet with patient and family today to further discuss the above. Will continue to monitor and follow for discharge. Malika Laguerre Referral Liaison
--- NOTE | 2021-02-17 15:39 | NUR ---
Hourly checks in pt's room assessed that pt appears to be sleeping comfortably, eyes closed, and respirations even and unlabored. HIs daughter was here and spoke with Malika, the pt liason coordinator.
--- NOTE | 2021-02-17 16:46 | NUR ---
Pt c/o itching and discomfort at reddened excoriated area under pannus. Area was gently cleansed, dried and antifungal applied per orders. Pt was repositioned until he said he was comfortable.
--- NOTE | 2021-02-17 21:15 | NUR ---
ASSUMED CARE OF PATIENT AT APPROXIMATELY 1910 FROM [facility] [place] RN. PATIENT DROWSY; WAKES TO VERBAL STIMULUS. PATIENT CONFUSED UPON WAKING UP; ASKING THE TIME AND IF "SLEEPY STUFF WAS PUT IN HIS MEDICATION TODAY?". PATIENT TAKING HIGH AMOUNTS OF PAIN MEDICATION AND REFUSED PAIN TONIGHT. PATIENT DENIES NAUSEA, DIZZINESS, NUMBNESS, AND TINGLING. PATIENT REPORTED HEART BURN; REFUSED TUMS "MADE ME THROW UP LAST TIME" AND REQUESTED 1% MILK. MEDICAL NO TELE STATUS; OXYGEN SATURATION ABOVE 90% ON ROOM AIR. 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 PATIENT TO DISCHARGE HOME TO HOSPICE TOMORROW.
--- NOTE | 2021-02-18 06:09 | NUR ---
PATIENT SLEPT ABOUT NINE HOURS LAST NIGHT; ONE ASSIST TO BATHROOM FOR BM THIS MORNING; REPORTS MILK RELIEVED INDEGESTION; NO OTHER CHANGES TO REPORT.
--- NOTE | 2021-02-18 09:40 | NUR ---
Patient is to discharge at 1030 with orders for hospice. Contacted [facility] (Stephanie) on 02/17/2021 to arrange gurney transport to patient's residence. Pick-up at 1030 will be provided by the above. Faxed copy of face sheet, PCS form, and DNR status to [facility] office per protocol. Placed copies of the above in nurse windows server architect for critical care transport nurse. Notified nurse primary care md (Kenyetta Truong), fish bailer (Jovanny Santana), and bedside RN (Radu Tabares) of the above. All are agreeable to the above. Requested discharge orders from hospitalist (Dr. Boggs). Provided hard copy prescriptions for morphine, lorazepam, oxycodone ER, and oxycodone IR to patient's daughter (Hannah Dye) on - 02/17/2021. Faxed copies of discharge order and med list to [facility] binding bench worker. No further interventions required. Malika Laguerre Referral Liaison
--- NOTE | 2021-02-18 10:46 | NUR ---
DISCHARGE UPDATE PT DISCHARGED AT 1042. PT TRANSPORTED FROM HOSPITAL BED TO [facility] WITH MODERATE ASSISTANCE OF THIS RN AND AMBULANCE PERSONEL. DISCHARGE PACKET GONE OVER WITH PT AT 1040 AND PACKET IS WITH PT DURING DISCHARGE. PT BELONGINGS BAGGED AND TRANSFERED WITH PT. PT CELL PHONE PLACED IN ONE OF THE BAGS PER PT REQUEST ALONG WITH DISCHARGE PACKET.
== END 2021-02-18 10:49 | disposition home or self-care (01) | DRG 682 ==
LOC: ER 17:41 → PCU 22:29
PROVIDERS: Emergency Medicine; Family Medicine; Internal Medicine; Internal Medicine Nephrology; ADMIT Internal Medicine
DX: N17.9 Acute kidney failure, unspecified (principal); J96.01 Acute respiratory failure with hypoxia; C79.51 Secondary malignant neoplasm of bone; M48.56XA Collapsed vertebra, not elsewhere classified, lumbar region, initial encounter for fracture; C41.9 Malignant neoplasm of bone and articular cartilage, unspecified; E87.2 Acidosis; C78.7 Secondary malignant neoplasm of liver and intrahepatic bile duct; C78.02 Secondary malignant neoplasm of left lung; C78.01 Secondary malignant neoplasm of right lung; I50.32 Chronic diastolic (congestive) heart failure; R65.10 Systemic inflammatory response syndrome (SIRS) of non-infectious origin without acute organ dysfunction; N18.5 Chronic kidney disease, stage 5; I10 Essential (primary) hypertension; Z20.822 Contact with and (suspected) exposure to COVID-19; E11.22 Type 2 diabetes mellitus with diabetic chronic kidney disease; Z85.46 Personal history of malignant neoplasm of prostate; Z98.890 Other specified postprocedural states; Z87.891 Personal history of nicotine dependence; Z66 Do not resuscitate; Z88.8 Allergy status to other drugs, medicaments and biological substances; Z79.899 Other long term (current) drug therapy; Z79.84 Long term (current) use of oral hypoglycemic drugs; R21 Rash and other nonspecific skin eruption; E87.6 Hypokalemia; D64.9 Anemia, unspecified; E86.9 Volume depletion, unspecified; Z53.29 Procedure and treatment not carried out because of patient's decision for other reasons; E88.09 Other disorders of plasma-protein metabolism, not elsewhere classified
CPT/HCPCS: 0097U; 0241U; 36415; 36600; 71045; 74150; 80053; 80069; 81001; 82140; 82550; 82553; 82803; 82947; 83036; 83605; 83735; 83880; 84443; 84484; 85014; 85018; 85025; 85610; 86335; 87040; 87086; 93005; 93010; 93306; 94760; 94762; 96365; 97110; 97116; 97162; 97166; 97530; 97535; 99285-25; A9270; C1751; G0103; J0692; J0696; J1650; J1940; J3480; J7030; J7120